=== PATIENT | female | born 2000 | race Caucasian/White ===

== ENCOUNTER → 2020-03-29 | Outpatient (CLI) | payer SELFPAY | LOC: M LABSMTC 10:19 | PROVIDERS: ATTEND Pediatrics | DX: Z20.828 Contact with and (suspected) exposure to other viral communicable diseases (principal) ==

== ENCOUNTER 2020-12-16 02:31 | Emergency (ER) | payer OTHER, SELFPAY ==
[~2020-12-16] VITALS: Ht 160 cm; Wt 72.7 kg
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
[2020-12-16] MEDS ORDERED: DOXY1CAP62 PO (05:30)
--- NOTE | 2020-12-16 06:27 | ED PDOC ---
Post-Departure Follow-Up ft dr darwin lou faxed formal report of ct head for fu Sheyla Machado MD Dec 16, 2020 06:27
[2020-12-16 06:29] VITALS: BP 119/74
== END 2020-12-16 06:33 | disposition home or self-care (01) ==
LOC: M ED 02:31
DX: S02.2XXA Fracture of nasal bones, initial encounter for closed fracture (principal); S02.832A Fracture of medial orbital wall, left side, initial encounter for closed fracture; F10.220 Alcohol dependence with intoxication, uncomplicated; Y04.8XXA Assault by other bodily force, initial encounter; T76.11XA Adult physical abuse, suspected, initial encounter; Y92.9 Unspecified place or not applicable; Y93.9 Activity, unspecified; Y99.9 Unspecified external cause status

== ENCOUNTER → 2022-04-08 | Outpatient (CLI) | payer OTHER ==
[~2022-04-08] MED LIST: DOXY-443 PO
== END ==
LOC: M RAD 13:58
PROVIDERS: ATTEND Nurse Practitioner Women's Health
DX: Z36.89 Encounter for other specified antenatal screening (principal); Z3A.19 19 weeks gestation of pregnancy